=== PATIENT | female | born 1960 | race Caucasian/White ===

== ENCOUNTER 2019-05-27 15:55 | Observation (INO) | payer BC, OTHER ==
[~2019-05-27] VITALS: Ht 165.1 cm; Wt 52.5 kg
[2019-05-27 16:32] LABS: PARTIAL THROMBOPLASTIN TIME 28 SECONDS (22-32)
[2019-05-27 16:34] LABS: BASOPHILS % (AUTO) 1.1 % (0-1); EOSINOPHILS # (AUTO) 0.1 X10'3 (0-0.9); EOSINOPHILS % (AUTO) 1.5 % (0-6); HEMATOCRIT 40.4 % (35.0-45.0); HEMOGLOBIN 13.7 g/dl (12.0-16.0); LYMPHOCYTES % (AUTO) 28.1 % (21-51); MEAN CORPUSCULAR HEMOGLOBIN 31.8 PG (27.0-31.0); MEAN CORPUSCULAR HGB CONC 33.9 g/dL (33.0-36.5); MEAN CORPUSCULAR VOLUME 93.9 FL (78-98); MONOCYTES # (AUTO) 0.2 X10'3 (0-0.9); MONOCYTES % (AUTO) 5.9 % (2-12); NEUTROPHILS # (AUTO) 2.2 X10'3 (1.8-7.7); NEUTROPHILS % (AUTO) 63.4 % (42-75); PLATELET COUNT 236 X10'3 (140-440); RED BLOOD COUNT 4.31 X10'6 (4.20-5.60); RED CELL DISTRIBUTION WIDTH 14.3 % (11.5-14.5); WHITE BLOOD COUNT 3.4 X10'3 (4.5-11.0)
[2019-05-27 16:37] LABS: ALANINE AMINOTRANSFERASE 25 U/L (12-78); ALBUMIN 3.6 G/DL (3.4-5.0); ALBUMIN/GLOBULIN RATIO 1.2 (1.1-1.5); ALKALINE PHOSPHATASE 50 IU/L (46-116); ANION GAP 5 (8-16); ASPARTATE AMINO TRANSFERASE 25 U/L (10-37); BILIRUBIN,TOTAL 0.4 MG/DL (0.1-1.0); BLOOD UREA NITROGEN 15 MG/DL (7-18); BUN/CREATININE RATIO 23.8 (6.6-38.0); CALCIUM 8.8 MG/DL (8.5-10.1); CHLORIDE 105 MMOL/L (99-107); CREATININE 0.63 MG/DL (0.40-0.90); GLUCOSE 117 MG/DL (70-104); POTASSIUM 3.4 MMOL/L (3.5-5.1); SODIUM 142 MMOL/L (135-145); TOTAL CARBON DIOXIDE 32.3 MMOL/L (24-32); TOTAL PROTEIN 6.6 G/DL (6.4-8.2); eGFR > 90 ML/MIN
[2019-05-27] MEDS ORDERED: normal saline 1000ml 1,000 ML IV SCH (20:08)
[2019-05-27] MEDS ORDERED: magnesium hydroxide 30ml (MOM) UD suspension PO PRN (20:10)
[2019-05-27] MEDS ORDERED: aminophylline 250mg/10ml inj. IV PRN (20:10)
[2019-05-27] MEDS ORDERED: regadenoson 0.4mg/5ml syringe IV PRN (20:10)
[2019-05-27] MEDS ORDERED: metoprolol tartrate 1mg/ml inj IV PRN (20:10)
[2019-05-27] MEDS ORDERED: ondansetron/PF 4mg/2ml inj IV PRN (20:10)
[2019-05-27] MEDS ORDERED: potassium Cl 20 mEq SR tablet PO PRN ×2 (20:10)
[2019-05-27] MEDS ORDERED: nitroGLYCERIN 0.4mg SUBLingual tab SL PRN (20:10)
[2019-05-27] MEDS ORDERED: potassium CL 10mEq/100ml bag 100 ML IV PRN ×2 (20:10)
[2019-05-27] MEDS ORDERED: magnesium 2GM in 50ml NS 50 ML IV PRN (20:10)
[2019-05-27] MEDS ORDERED: mag hydrox/Alum hydrox/simeth 30ml oral suspension PO PRN (20:10)
[2019-05-27] MEDS ORDERED: magnesium 4gm in 100ml NS 100 ML IV PRN (20:10)
[2019-05-27] MEDS ORDERED: acetaminophen 325mg tablet PO PRN (20:10)
[2019-05-27] MEDS ORDERED: HYDR200T84 PO (20:54)
[2019-05-27] MEDS ORDERED: LEVO50TA PO (20:54)
[2019-05-27 22:00] VITALS: BP 110/59
[2019-05-28] VITALS (12 sets, daily range): BP systolic 56–106; BP diastolic 54–63
[2019-05-28 04:33] LABS: BASOPHILS % (AUTO) 1.4 % (0-1); EOSINOPHILS # (AUTO) 0.1 X10'3 (0-0.9); EOSINOPHILS % (AUTO) 2.8 % (0-6); HEMATOCRIT 37.5 % (35.0-45.0); HEMOGLOBIN 12.7 g/dl (12.0-16.0); LYMPHOCYTES # (AUTO) 1.1 X10'3 (1.1-4.8); LYMPHOCYTES % (AUTO) 35.5 % (21-51); MEAN CORPUSCULAR HEMOGLOBIN 32.2 PG (27.0-31.0); MEAN CORPUSCULAR HGB CONC 33.9 g/dL (33.0-36.5); MEAN CORPUSCULAR VOLUME 94.9 FL (78-98); MEAN PLATELET VOLUME 7.5 FL (7.4-10.4); MONOCYTES # (AUTO) 0.3 X10'3 (0-0.9); MONOCYTES % (AUTO) 8.3 % (2-12); NEUTROPHILS # (AUTO) 1.6 X10'3 (1.8-7.7); PLATELET COUNT 200 X10'3 (140-440); RED BLOOD COUNT 3.96 X10'6 (4.20-5.60); RED CELL DISTRIBUTION WIDTH 14.7 % (11.5-14.5); WHITE BLOOD COUNT 3.1 X10'3 (4.5-11.0)
[2019-05-28 04:49] LABS: ALANINE AMINOTRANSFERASE 18 U/L (12-78); ALBUMIN 2.9 G/DL (3.4-5.0); ALBUMIN/GLOBULIN RATIO 1.1 (1.1-1.5); ALKALINE PHOSPHATASE 44 IU/L (46-116); ANION GAP 6 (8-16); ASPARTATE AMINO TRANSFERASE 21 U/L (10-37); BILIRUBIN,TOTAL 0.4 MG/DL (0.1-1.0); BLOOD UREA NITROGEN 16 MG/DL (7-18); BUN/CREATININE RATIO 26.7 (6.6-38.0); CHLORIDE 109 MMOL/L (99-107); GLUCOSE 86 MG/DL (70-104); POTASSIUM 3.7 MMOL/L (3.5-5.1); SODIUM 143 MMOL/L (135-145); TOTAL CARBON DIOXIDE 27.9 MMOL/L (24-32); TOTAL PROTEIN 5.5 G/DL (6.4-8.2); eGFR > 90 ML/MIN
[2019-05-28 04:52] LABS: CHOL/HDL RATIO 2.6 (0.00-4.99); CHOLESTEROL 211 MG/DL (0-200); HDL CHOLESTEROL 82 MG/DL (35-60); LDL CHOLESTEROL 115 MG/DL (50-100); MAGNESIUM 1.7 MG/DL (1.5-2.4); TRIGLYCERIDES 43 MG/DL (20-135)
--- NOTE | 2019-05-28 06:10 | NUR ---
Patient in room MED 314. I have received report from PK Merrill and had the opportunity to ask questions and assume patient care.
--- NOTE | 2019-05-28 06:51 | NUR ---
Problems reprioritized. Patient report given to Russell, questions answered & plan of care reviewed with .
[2019-05-28] MEDS ORDERED: hydroxychloroquine 200mg tablet PO SCH (08:00)
[2019-05-28] MEDS ORDERED: K and/or MAG REPLACEMENT MC SCH (08:00)
[2019-05-28] MEDS ORDERED: enoxaparin 40mg/0.4ml syringe SQ SCH (08:00)
[2019-05-28] MEDS ORDERED: PANT-47 PO (12:16)
--- NOTE | 2019-05-28 13:26 | NUR ---
Patient is discharged. All discharge instructions given to patient both verbally and written. Patient reports that she has no questions. New Rx called to [facility] pharmacy per patient. Left a message on the New Rx line. PIV is removed, catheter intact. Patient tolerated well. 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 She is alert and oriented and ini stable condition. Patient took all belongings with her.
[2019-05-28] MEDS ORDERED: levoTHYROXINE 25mcg tablet PO SCH (21:00)
== END 2019-05-28 13:30 | disposition home or self-care (01) ==
LOC: ER 15:56 → ED HOLD 20:08 → MED 3N 21:25
PROVIDERS: ADMIT Family Medicine; ATTEND Family Medicine
DX: R07.89 Other chest pain (principal); I25.2 Old myocardial infarction; I20.0 Unstable angina; M06.9 Rheumatoid arthritis, unspecified; E87.6 Hypokalemia; Z90.710 Acquired absence of both cervix and uterus; Z79.899 Other long term (current) drug therapy
CPT/HCPCS: 36415; 71045; 78452; 80053; 80061; 83735; 84484; 85025; 85610; 85730; 87081; 93005; 93017; 93306; 96372; 99285; A9500; G0378; J2785; J7030; J1650

== ENCOUNTER 2019-11-14 13:46 | Emergency (ER) | payer BC, OTHER ==
[~2019-11-14] VITALS: Ht 165.1 cm; Wt 52.3 kg
[~2019-11-14 13:46] MED LIST: HYDR200T84 PO; LEVO50TA PO; PANT-47 PO
[2019-11-14] MEDS ORDERED: LIDOcaine 1% 30ml preserv. free vial IJ ONE (15:00)
[2019-11-14 16:24] LABS: CLARITY,URINE CLEAR (Clear); COLOR,URINE STRAW (Yellow); GLUCOSE, URINE NEGATIVE (Neg); KETONES,URINE NEGATIVE (Neg); LEUKOCYTE ESTERASE ,URINE TRACE (Neg); NITRITES, URINE NEGATIVE (Neg); OCCULT BLOOD,URINE TRACE-INTACT (Neg); PH,URINE 6.5 (4.8-8.0); PROTEIN,URINE NEGATIVE (Neg); UROBILINOGEN,URINE 0.2 E.U/dL (0.2-1.0)
[2019-11-14 16:31] LABS: UA COLLECTION TYPE CLN CATCH MIDSTREAM
[2019-11-14 16:32] LABS: BACTERIA,URINE FEW /HPF (Neg); MUCUS STRANDS NONE SEEN /LPF (Neg); RBC,URINE 0-2 /HPF (0-2); SQUAMOUS EPITHELIAL CELL,UR FEW /LPF (FEW); WBC,URINE 0-4 /HPF (0-4)
[2019-11-14] MEDS ORDERED: DICL100G30 TOP (16:47)
[2019-11-14 17:02] VITALS: BP 97/63
== END 2019-11-14 17:08 | disposition home or self-care (01) ==
LOC: ER 13:47
DX: M54.6 Pain in thoracic spine (principal); R10.12 Left upper quadrant pain; R55 Syncope and collapse; E03.9 Hypothyroidism, unspecified; M06.9 Rheumatoid arthritis, unspecified; Z90.710 Acquired absence of both cervix and uterus; Z98.890 Other specified postprocedural states; Z79.899 Other long term (current) drug therapy
CPT/HCPCS: 20552; 72074; 81001; 87088; 99284